=== PATIENT | male | born 1965 | race African-American/Black ===

== ENCOUNTER → 2016-11-19 | Outpatient (CLI) | payer BC ==
--- NOTE | 2016-11-19 11:52 | KCIC ---
Cervical spine, five views Indication: Cervical radiculopathy. Time of exam 11:22 a.m. There is straightening of the normal cervical lordotic curvature. Minimal retrolisthesis of C5 on C6 is noted. There is degenerative disc disease C5-6 level with disc space narrowing and marginal spurring. Multilevel facet arthropathy is noted. The odontoid is intact. No fractures are seen. There does appear to be neural foraminal narrowing bilaterally at the C3-4 and C4-5 levels. There may be some narrowing at C5-6 as well. Impression: Cervical spondylosis. No acute bony abnormality is detected. Electronically signed by: Farhan Cintron MD (November 19, 2016 11:50:40)
== END | disposition home or self-care (01) ==
LOC: KCIC 11:12
PROVIDERS: ATTEND Family Medicine
DX: M47.892 Other spondylosis, cervical region (principal)
CPT/HCPCS: 72050